=== PATIENT | female | born 1995 | race Caucasian/White ===

== ENCOUNTER → 2017-12-22 | Emergency (ER) | payer SELFPAY ==
[2017-12-22 07:09] VITALS: BP 117/47; PULSE 99; BMI 27.2
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
== END ==
LOC: JER 06:58
CPT/HCPCS: 72125-TC; 99282-25